=== PATIENT | female | born 1980 | race Caucasian/White ===

== ENCOUNTER 2019-06-14 10:59 | Emergency (ER) | payer MEDICAID ==
[~2019-06-14] VITALS: Ht 165.1 cm; Wt 91.2 kg
[2019-06-14 11:05] VITALS: Ht 165.1 cm; Wt 91.2 kg
[2019-06-14 12:20] VITALS: BP 123/84
== END 2019-06-14 12:20 | disposition short-term general hospital (02) ==
LOC: ED 10:59
DX: O80 Encounter for full-term uncomplicated delivery (principal); Z3A.40 40 weeks gestation of pregnancy